=== PATIENT | female | born 1950 | race Caucasian/White ===

== ENCOUNTER → 2016-07-09 | Outpatient (CLI) | payer BC ==
[2015-09-03 11:59] VITALS: BP 155/79
[~2016-07-09] MED LIST: AMLO10TA2 PO; ASPI81TA50 PO; ATOR40TA59 PO; BYSTOLIC5 MG PO; CELE200C PO; CYCL1DRO EACHEYE; ESTR0.62 PO; ESTR1TAB15 PO; FERR325T58 PO; FINA1TAB PO; FURO20TA3 PO; HYOS0.1264 PO; LUBI8CAP3 PO; METF10002 PO; METF500T9 PO; METO2.5T PO; MULT-658 PO; OMEG1CAP16 PO; ONDA4TAB12 PO; OXYC10TA PO; OXYC20TA34 PO; POLY17PO5 PO; POLY2500 PO; POTA20TA12 PO; PREG75CA PO; SOLI10TA PO; TAPE100T6 PO; TIZA4CAP3 PO; TIZA4TAB PO; TRAZ100T12 PO; calcium; estradiol cream
--- NOTE | 2016-07-09 11:18 | RAD ---
PROCEDURE MRI brain without contrast. HISTORY Increasing headaches post fall. TECHNIQUE Sagittal T1, axial T1, axial T2, axial FLAIR, axial T2 gradient, coronal T2, and diffusion imaging with ADC map were performed. COMPARISON CT head September 03, 2015. FINDINGS There is prominence of the ventricles and sulci. FLAIR hyperintensities in the supratentorial white matter are nonspecific but most suggestive of mild small vessel ischemic disease. Similar findings are noted in the jay. There is no acute intracranial hemorrhage or extra-axial fluid collection. There is no mass effect or midline shift. There is no restricted diffusion to suggest an acute infarct. Cervicomedullary junction is unremarkable. Intracranial flow voids are preserved. The paranasal sinuses and mastoid air cells are clear. IMPRESSION No acute intracranial findings. Brain parenchymal volume loss and mild probable small-vessel ischemic disease. Electronically signed by: Thiago Carrillo MD (Jul 09, 2016 11:16:57)
== END | disposition home or self-care (01) ==
LOC: MRI 14:48
PROVIDERS: ATTEND Physician Assistant Medical
DX: R51 Headache (principal)
CPT/HCPCS: 70551

== ENCOUNTER → 2017-10-08 | Outpatient (CLI) | payer MEDICARE, BC ==
[2017-10-08] MEDS: REGADENOSON 0.4 MG/5 ML DISP.SYRIN. IV (10:12)
== END | disposition home or self-care (01) ==
LOC: NM 08:02
DX: I36.1 Nonrheumatic tricuspid (valve) insufficiency (principal); I27.20 Pulmonary hypertension, unspecified; E11.9 Type 2 diabetes mellitus without complications; I10 Essential (primary) hypertension
CPT/HCPCS: 78452; 93017; 93306; 96374; 96375; 96376; A9500; J2785

== ENCOUNTER 2017-11-06 06:23 | Outpatient (CLI) | payer MEDICARE, BC ==
[2017-11-06] MEDS ORDERED: IODIXANOL 320 MG/ML 100 ML VIAL. (07:12)
[2017-11-06] MEDS ORDERED: LIDOCAINE 2% 20 ML VIAL. (07:12)
[2017-11-06 07:13] LABS: HEMOGLOBIN 12.3 g/dL (12.0-15.5); MEAN CORPUSCULAR HEMOGLOBIN 31 pg (25-35); MEAN CORPUSCULAR HGB CONC 34 g/dL (31-37); MEAN CORPUSCULAR VOLUME 91 fL (79-100); PLATELET COUNT 266 x10^3/uL (140-400); RED BLOOD COUNT 3.94 x10^6/uL (3.50-5.40); RED CELL DISTRIBUTION WIDTH 12.6 % (11.5-14.5); WHITE BLOOD COUNT 7.3 x10^3/uL (4.0-11.0)
[2017-11-06 07:24] LABS: ANION GAP 10 (6-14); BLOOD UREA NITROGEN 29 mg/dL (7-20); CALCIUM 8.2 mg/dL (8.5-10.1); CARBON DIOXIDE 29 mmol/L (21-32); CHLORIDE 102 mmol/L (98-107); CREATININE 1.3 mg/dL (0.6-1.0); GFR 41.1; GLUCOSE 84 mg/dL (70-99); INR 0.8 (0.8-1.1); PARTIAL THROMBOPLASTIN TIME 24 SEC (24-38); POTASSIUM 4.3 mmol/L (3.5-5.1); PROTHROMBIN TIME PATIENT 11.1 SEC (11.7-14.0); SODIUM 141 mmol/L (136-145)
[2017-11-06] MEDS: IV NORMAL SALINE 1000ML BAG 1,000 ML IV (07:37)
[2017-11-06] MEDS ORDERED: MIDAZOLAM HCL/PF 2 MG/2 ML VIAL. ×2 (07:56→08:10)
[2017-11-06] MEDS ORDERED: fentaNYL PF VIAL 100 MCG/2 ML VIAL (07:56)
[2017-11-06] MEDS: MIDAZOLAM HCL/PF 2 MG/2 ML VIAL. IV (08:05)
[2017-11-06] MEDS: IODIXANOL 320 MG/ML 100 ML VIAL. IART (08:34)
[2017-11-06] MEDS: LIDOCAINE 2% 20 ML VIAL. IJ (08:34)
[2017-11-06] MEDS: fentaNYL PF VIAL 100 MCG/2 ML VIAL IV (08:35)
[2017-11-06] MEDS ORDERED: IV NORMAL SALINE 1000ML BAG 1,000 ML IV (09:06)
[2017-11-06] MEDS ORDERED: NITROGLYCERIN SUBLINGUAL 0.4 MG BOTTLE OF 25. SL (09:15)
[2017-11-06] MEDS ORDERED: 0.9 % SODIUM CHLORIDE 10 ML DISP.SYRIN. IV (09:15)
== END 2017-11-06 12:00 | disposition home or self-care (01) ==
LOC: CCL 06:23
DX: I25.10 Atherosclerotic heart disease of native coronary artery without angina pectoris (principal); I10 Essential (primary) hypertension; E78.00 Pure hypercholesterolemia, unspecified; Z88.0 Allergy status to penicillin; Z88.4 Allergy status to anesthetic agent; E11.39 Type 2 diabetes mellitus with other diabetic ophthalmic complication; H40.9 Unspecified glaucoma; M79.7 Fibromyalgia; Z79.01 Long term (current) use of anticoagulants; Z98.890 Other specified postprocedural states; Z79.82 Long term (current) use of aspirin; Z79.84 Long term (current) use of oral hypoglycemic drugs; I27.20 Pulmonary hypertension, unspecified; I36.1 Nonrheumatic tricuspid (valve) insufficiency
CPT/HCPCS: 36415; 80048; 85027; 85610; 85730; 93458; 99152; 99153; C1769; C1771; C1892; G0269; J1644; J2001; J2250; J3010; J7030

== ENCOUNTER → 2017-11-27 | Day surgery (SDC) | payer BC, MEDICARE ==
[~2017-11-27] MED LIST changes: +AMLO1CAP15 PO; +ATORVASTATIN CA80 MG PO; +DULO60CA6 PO; +FERR-36 PO; +FINA5TAB4 PO; +IV RINGERS,LACTATED 1000ML 1,000 ML IV SCH; +LIDOCAINE 1% PF 2 ML VIAL. ID PRN; +LIDOCAINE 2% PF Vial for OR 5 ML VIAL. ONE; -LUBI8CAP3 PO; +LUBI8CAP4 PO; -METF10002 PO; +METF10003 PO; +MORPHINE SULFATE 2 MG/ML VIAL. IV PRN; -OMEG1CAP16 PO; +OMEG1CAP27 PO; +ONDANSETRON PF 4 MG/2 ML VIAL. IV PRN; +OXYC30TA PO; +POLY17PO29 PO; -POLY17PO5 PO; +POTA10TA12 PO; +PROCHLORPERAZINE 10 MG/2 ML VIAL. IV PRN; +PROPOFOL 20 ML IV ONE; -SOLI10TA PO; +SOLI10TA2 PO; -TAPE100T6 PO; +TAPE100T7 PO; +TAPE100T9 PO; +TRAZ-85 PO; +TRAZ-86 PO; -TRAZ100T12 PO; +fentaNYL PF VIAL 100 MCG/2 ML VIAL IV PRN
[2017-11-27 09:24] VITALS: BP 150/72
--- NOTE | 2017-11-27 23:16 | HP ---
ADMIT DATE: 11/27/2017 UPDATE HISTORY AND PHYSICAL. REASON FOR PRESENTATION: Epigastric pain. REFERRING PHYSICIAN: Paola Adams. HISTORY OF PRESENT ILLNESS: A 67-year-old female whose past medical history is significant for anemia, anxiety, arthritis, history of colonic polyps, diabetes, GERD, high blood pressure and hypercholesterolemia, is seen with persistent epigastric pain, status post cholecystectomy. There has been no change in weight or appetite. Hemoglobin A1c has been 6.3. Previous gastric emptying studies x 2 have been normal. She does have dyspnea on exertion on half a block and flight of stairs. She has a strong family history of organic heart disease. Recurrent evaluation is recommended for EGD and per the patient, she says this has been completed and has been unrevealing and is here today for further evaluation. PAST MEDICAL HISTORY: Hypertension, hyperlipidemia, anxiety, arthritis, colonic polyps and depression. ALLERGIES: LIDOCAINE. MEDICATIONS: Include amlodipine, aspirin, atorvastatin, Celebrex, Cymbalta, estradiol, Propecia, furosemide, metformin, oxycodone, polyethylene glycol, Nucynta, tizanidine and trazodone. FAMILY AND SOCIAL HISTORY: Significant for organic heart disease with her father. She is a nonsmoker, social drinker. PAST SURGICAL HISTORY: Back surgery, eye surgery, gallbladder surgery, hysterectomy and tonsillectomy. REVIEW OF SYSTEMS: Per records. PHYSICAL EXAMINATION: GENERAL: Reveals a well-nourished, well-developed female, who is alert, cooperative and in mild distress. VITAL SIGNS: Temperature is 97.8, pulse 80 and respirations 20. HEENT EXAMINATION: Normocephalic and atraumatic head. Pupils and extraocular muscles are not tested. Sclerae anicteric. NECK: Supple. LUNGS: Clear. CARDIOVASCULAR EXAMINATION: Reveals S1 and S2, without S3, S4 or appreciable murmur. ABDOMEN: Exam reveals soft abdomen. Normoactive bowel sounds, without appreciable hepatosplenomegaly. EXTREMITIES: Exam reveals no cyanosis, clubbing or edema. IMPRESSION AND PLAN: Epigastric pain, status post cholecystectomy, etiology is to be determined. Differential includes gastroesophageal reflux disease, peptic ulcer disease, gastroparesis and malignant celiac disease. Therefore, we recommend upper endoscopy with possible biopsy. Risks and benefits of the procedure have been previously discussed with the patient, who is willing to proceed at this time. ISABELLA STEPHENS MD DR: Harpreet JOB#: [id number] / [id number]
--- NOTE | 2017-12-01 16:07 | PATHOLOGY ---
[facility] Accession Number: [id number] . 01 Material submitted: . DISTAL ESOPHAGEAL BIOPSY . 01 Clinical history: . Reflux, nonerosive gastritis . 02 Diagnosis: Esophagus, distal, biopsy: - Fragments of mildly hyperplastic squamous epithelium. - Separate single fragment of columnar epithelium with [id number] chronic inflammation. - No evidence of intestinal metaplasia. (SKM:edwin; 11/28/2017) QMS/12/01/2017 . 02 Electronically signed: . Adilson Kaiser MD, Pathologist NPI- [id number] . 01 Gross description: . Received in formalin labeled "Christiann, Myrtle, distal esophageal BX," are 5 segments of matute soft tissue measuring 1.4 x 0.7 x 0.2 cm in aggregate dimensions and ranging from 0.2 to 0.4 cm in maximum dimension. The specimen is submitted entirely in cassette A1. (TSD; 11/27/2017) TOB/TOB . 02 Pathologist provided ICD-10: K20.9 . 02 CPT . 707912 Performed at: 01 [facility] [address] [id number] MD Tom Estrella MD Phone: [phone] Performed at: 02 [facility] [address] [id number] MD Dougie Daugherty MD Phone: [phone]
== END | disposition home or self-care (01) ==
LOC: ENDOS 07:31
PROVIDERS: ATTEND Internal Medicine Gastroenterology
DX: K21.0 Gastro-esophageal reflux disease with esophagitis (principal); K29.50 Unspecified chronic gastritis without bleeding; I10 Essential (primary) hypertension; F41.9 Anxiety disorder, unspecified; E11.39 Type 2 diabetes mellitus with other diabetic ophthalmic complication; H40.9 Unspecified glaucoma; E78.00 Pure hypercholesterolemia, unspecified; F32.9 Major depressive disorder, single episode, unspecified; M19.90 Unspecified osteoarthritis, unspecified site; Z86.010 Personal history of colon polyps; Z79.82 Long term (current) use of aspirin; Z79.899 Other long term (current) drug therapy; Z82.49 Family history of ischemic heart disease and other diseases of the circulatory system; Z90.49 Acquired absence of other specified parts of digestive tract; Z98.890 Other specified postprocedural states; Z88.0 Allergy status to penicillin; Z88.4 Allergy status to anesthetic agent; Z72.89 Other problems related to lifestyle; Z90.710 Acquired absence of both cervix and uterus; Z98.42 Cataract extraction status, left eye; Z98.41 Cataract extraction status, right eye; Z96.1 Presence of intraocular lens; Z87.442 Personal history of urinary calculi; M79.7 Fibromyalgia; Z85.828 Personal history of other malignant neoplasm of skin; Z79.84 Long term (current) use of oral hypoglycemic drugs
CPT/HCPCS: 43239; J2001; J2704; 88305

== ENCOUNTER → 2018-04-25 | Outpatient (CLI) | payer MEDICARE, OTHER ==
[2017-11-27 09:24] VITALS: BP 150/72
[~2018-04-25] MED LIST changes: -AMLO10TA2 PO; +AMLO10TA8 PO; -AMLO1CAP15 PO; +AMLO1CAP54 PO; -IV RINGERS,LACTATED 1000ML 1,000 ML IV SCH; -LIDOCAINE 1% PF 2 ML VIAL. ID PRN; -LIDOCAINE 2% PF Vial for OR 5 ML VIAL. ONE; -METF10003 PO; +METF10007 PO; -MORPHINE SULFATE 2 MG/ML VIAL. IV PRN; -ONDANSETRON PF 4 MG/2 ML VIAL. IV PRN; -OXYC30TA PO; +OXYC30TA3 PO; -PROCHLORPERAZINE 10 MG/2 ML VIAL. IV PRN; -PROPOFOL 20 ML IV ONE; -TIZA4TAB PO; +TIZA4TAB2 PO; +TRAZ-118 PO; -TRAZ-85 PO; -fentaNYL PF VIAL 100 MCG/2 ML VIAL IV PRN
--- NOTE | 2018-04-25 16:43 | KCIC ---
CHEST AP ONLY Clinical indications: Screening for stimulator device prior to MRI study. History of stimulator with removal. COMPARISON: April 26, 2004.. Findings: No acute lung infiltrate or pleural effusion or pulmonary edema or lung mass or pneumothorax is seen. The heart size, pulmonary vasculature, mediastinum and both rosalio are unremarkable. No metallic foreign body or stimulator device is evident. Impression: No acute radiographic abnormality is seen. No metallic foreign body or stimulator device is evident. The patient is cleared for MRI. Electronically signed by: Radames Ayala MD (04/25/2018 4:38 PM) [id number]
--- NOTE | 2018-04-25 17:06 | KCIC ---
MRI study of the right knee without contrast Clinical indications: Chronic right knee pain for years which is getting worse. Previous knee surgery years ago. TECHNIQUE: Noncontrast MR sequences of the right knee were performed in all 3 planes. COMPARISON: No previous MRI study available. Radiographic study of the right knee dated September 03, 2015. FINDINGS: The anterior and posterior cruciate ligaments are intact. The quadriceps and patellar tendons are intact. No articular surface tear of the medial or lateral meniscus is seen. The medial collateral ligament is intact and no meniscocapsular separation is seen. The lateral collateral ligament complex and iliotibial band and popliteus tendon are intact. No posterior lateral corner injury is seen. No bone contusion or fracture or marrow infiltrative process is seen. There is minimal degenerative spurring of the medial and lateral tibial femoral joint compartments. Otherwise no significant osteochondral abnormality of the medial or lateral tibial femoral joint compartments is seen. The patella is normally aligned. There is moderate chondromalacia patellae of the lateral patellar facet especially the apex inferiorly with associated focal thinning of articular cartilage here and mild subchondral bone marrow edema. The trochlear articular cartilage is unremarkable. There is mild degenerative spurring of the patellofemoral joint compartment. The medial and lateral retinacular ligaments are intact. Mild circumferential subcutaneous soft tissue edema of the knee is seen. Small knee joint effusion is seen. No loose osteochondral body is evident. No Vega's cyst is seen. No muscle edema is evident. IMPRESSION: No ligament or tendon or meniscal tear is seen. Moderate chondromalacia patellae. Electronically signed by: Radames Ayala MD (04/25/2018 5:02 PM) [id number]
== END | disposition home or self-care (01) ==
LOC: KCIC MRI 15:06
PROVIDERS: ATTEND Physician Assistant Medical
DX: Z45.010 Encounter for checking and testing of cardiac pacemaker pulse generator [battery] (principal); M22.41 Chondromalacia patellae, right knee; M25.461 Effusion, right knee; R60.0 Localized edema
CPT/HCPCS: 71045; 73721

== ENCOUNTER → 2020-11-10 | Outpatient (CLI) | payer MEDICARE, OTHER ==
[2017-11-27 09:24] VITALS: BP 150/72
[~2020-11-10] MED LIST changes: +AMLO-187 PO; -AMLO10TA8 PO; +ESTR-113 PO; -ESTR1TAB15 PO; +METF-658 PO; -METF500T9 PO; +PREG-9 PO; -PREG75CA PO; +TRAZ-123 PO; -TRAZ-86 PO
--- NOTE | 2020-11-10 13:49 | RAD ---
MR#: [id number] Date of Study: 11/10/2020 Ordering Physician: ANITRA VEGA, Referring Physician: ANITRA VEGA, Tech: Clive Blevins MBA, RDMS, RVT, RDCS, RTR APPROVED REPORT Bilateral Lower Extremity Venous Study for DVT Patient Location: OUT-PATIENT Indications Lower Extremity Edema: Bilateral Right Vein Imaging (Right) CFV (R): Compressible SFJ (R): Compressible FEM (R): Compressible POP (R): Compressible DFV (R): Compressible PTV (R): Spontaneous GSV (R): Spontaneous Peroneals (R): Spontaneous Vein Imaging (Left) CFV (L): Compressible SFJ (L): Compressible FEM (L): Compressible POP (L): Compressible DFV (L): Compressible PTV (L): Spontaneous GSV (L): Spontaneous Peroneals (L): Spontaneous Doppler Evaluation (Right) CFV (R): Spontaneous POP (R):Spontaneous Doppler Evaluation (Left) CFV (L):Spontaneous POP (L):Spontaneous Findings The bilateral lower extremity deep veins were evaluated for thrombus with color Doppler, spectral and grayscale images. On the right the grayscale images of the common femoral, superficial femoral and popliteal veins do n ot demonstrate any evidence of thrombus and these veins appear to be compressible. The below-knee vei ns were not well visualized but grossly appear to be compressible. Spectral imaging and color Doppler do not reveal any evidence of obstruction to flow with normal respirophasic variation above the knee . Below the knee there is spontaneous flow noted. On the left, the grayscale images of the common femoral, superficial femoral and popliteal veins do n ot demonstrate any evidence of thrombus and these veins appear to be compressible. The below-knee vei ns again were not well visualized but grossly appear to be compressible. Spectral imaging and color D oppler do not reveal any evidence of obstruction to flow with normal respirophasic variation above th e knee. The below-knee veins demonstrate spontaneous flow. Critical Notification Critical Value: No <Conclusion> 1. Negative for DVT in the BLE. Signed by : Blanco Vasques, Electronically Approved : 11/10/2020 13:48:45
--- NOTE | 2020-11-10 13:55 | RAD ---
MR#: [id number] Date of Study: 11/10/2020 Ordering Physician: ANITRA VEGA, Referring Physician: ANITRA VEGA, Tech: Clive Blevins MBA, RDMS, RVT, RDCS, RTR APPROVED REPORT Patient Location : OUT-PATIENT Indications Lower Extremity Edema : Bilateral Findings Grayscale images of the bilateral saphenofemoral junctions are grossly unremarkable. The right great saphenous vein measures 3.8 mm in the left great saphenous vein measures 4.6 mm. Bilateral greater and lesser saphenous veins did not show any evidence of reflux. Critical Notification Critical Value: No <Conclusion> 1. Negative for reflux in the bilateral greater and lesser saphenous veins. Signed by : Blanco Vasques, Electronically Approved : 11/10/2020 13:54:48
== END ==
LOC: US 12:28
PROVIDERS: ATTEND Internal Medicine Cardiovascular Disease
DX: R60.0 Localized edema (principal)
CPT/HCPCS: 93970

== ENCOUNTER → 2020-11-15 | Outpatient (CLI) | payer MEDICARE, OTHER ==
[2017-11-27 09:24] VITALS: BP 150/72
--- NOTE | 2020-11-15 17:36 | CARD ---
MR#: [id number] Date of Study: 11/15/2020 Ordering Physician: ANITRA VEGA, Referring Physician: ANITRA VEGA, Tech: Daysi Renae [facility] APPROVED REPORT EXAM: Two-dimensional and M-mode echocardiogram with Doppler and color Doppler. Other Information Quality : AverageHR: 77bpm Rhythm : NSR INDICATION Hypertension/HCVD RISK FACTORS Hypertension Obesity 2D DIMENSIONS RVDd2.8 (2.9-3.5cm)Left Atrium(2D)4.1 (1.6-4.0cm) IVSd1.3 (0.7-1.1cm)Aortic Root(2D)3.0 (2.0-3.7cm) LVDd4.4 (3.9-5.9cm)LVOT Diameter2.5 (1.8-2.4cm) PWd1.2 (0.7-1.1cm)LVDs2.8 (2.5-4.0cm) FS (%) 35.4 %SV56.0 ml LVEF(%)65.1 (>50%) Aortic Valve AoV Peak Ramesh.234.5cm/sAoV VTI43.7cm AO Peak GR.22.0mmHgLVOT Peak Ramesh.150.8cm/s AO Mean GR.11mmHgAVA (VMAX)3.03cm2 Mitral Valve MV E Lhlfgmoi14.3cm/sMV DECEL [id number] MV A Ambsibzu548.6cm/sE/A Ratio0.8 Pulmonary Valve PV Peak Brrjlnzl110.4cm/s Tricuspid Valve TR P. Aqddqbyn209ru/sTR Peak Gr.25mmHg LEFT VENTRICLE The left ventricle is normal size. There is mild to moderate concentric left ventricular hypertrophy. The left ventricular systolic function is normal and the ejection fraction is within normal range. E F 55% There is normal LV segmental wall motion. Transmitral Doppler flow pattern is Grade I-abnormal relaxation pattern. RIGHT VENTRICLE The right ventricle is normal size. There is normal right ventricular wall thickness. The right ventr icular systolic function is normal. ATRIA The left atrium size is normal. The right atrium size is normal. The interatrial septum is intact wit h no evidence for an atrial septal defect or patent foramen ovale as noted on 2-D or Doppler imaging. AORTIC VALVE The aortic valve is calcified with immobile non-coronary cusp. Doppler and Color Flow revealed no sig nificant aortic regurgitation. There is moderate aortic stenosis visually but no significant stenosis by gradients. MITRAL VALVE The mitral valve is normal in structure and function. There is no evidence of mitral valve prolapse. There is no mitral valve stenosis. Doppler and Color Flow revealed no mitral valve regurgitation note d. TRICUSPID VALVE The tricuspid valve is normal in structure and function. Doppler and Color Flow revealed no tricuspid valve regurgitation noted. There is no tricuspid valve stenosis. PULMONIC VALVE Doppler and Color Flow revealed no pulmonic valvular regurgitation. There is no pulmonic valvular joyce nosis. GREAT VESSELS The aortic root is normal in size. The ascending aorta is normal in size. The IVC is normal in size a nd collapses >50% with inspiration. PERICARDIAL EFFUSION There is no evidence of significant pericardial effusion. Critical Notification Critical Value: No <Conclusion> The left ventricular systolic function is normal and the ejection fraction is within normal range. E F 55% There is normal LV segmental wall motion. There is moderate aortic stenosis visually but no significant stenosis by gradients. Signed by : Blanco Vasques, Electronically Approved : 11/15/2020 17:35:50
== END ==
LOC: ECHO 10:32
PROVIDERS: ATTEND Internal Medicine Cardiovascular Disease
DX: I35.0 Nonrheumatic aortic (valve) stenosis (principal); I51.7 Cardiomegaly; R06.09 Other forms of dyspnea
CPT/HCPCS: 93306